=== PATIENT | male | born 1955 | race Caucasian/White ===

== ENCOUNTER 2024-04-11 16:40 | Emergency (ER) | payer MEDICARE ==
[~2024-04-11] VITALS: Ht 188 cm; Wt 100.2 kg
[2024-04-11 16:41] VITALS: TEMP 98.4; O2SAT 100
[2024-04-11] MEDS ORDERED: ATOR1TAB19 PO (16:53)
[2024-04-11] MEDS ORDERED: METO37.5 PO (16:53)
[2024-04-11] MEDS ORDERED: LOSA25TA13 PO (16:53)
[2024-04-11] MEDS ORDERED: BAYE325T12 PO (16:53)
[2024-04-11] MEDS ORDERED: FLOM0.4C39 PO (16:53)
[2024-04-11 17:30] LABS: BASO # 0.1 10^3/uL (0.0-0.2); BASO % 0.8 % (0.0-1.0); EOS # 0.2 10^3/uL (0.0-0.5); EOS % 2.5 % (0.0-3.0); HEMATOCRIT 40.8 % (42.0-52.0); HEMOGLOBIN 14.4 g/dl (13.5-17.5); LYMPH # 1.8 10^3/uL (1.5-5.0); LYMPH % 24.9 % (24.0-44.0); MEAN CORPUSCULAR HEMOGLOBIN 33.3 pg (27.0-33.0); MEAN CORPUSCULAR HGB CONC 35.3 g/dl (32.0-36.5); MEAN CORPUSCULAR VOLUME 94.4 fl (80.0-96.0); MONO # 0.8 10^3/uL (0.0-0.8); MONO % 10.4 % (2.0-8.0); NEUTROPHILS # 4.4 10^3/uL (1.5-8.5); NEUTROPHILS % 61.3 % (36.0-66.0); PLATELET COUNT, AUTOMATED 189 10^3/uL (150-450); RED BLOOD COUNT 4.32 10^6/uL (4.30-6.10); WHITE BLOOD COUNT 7.2 10^3/uL (4.0-10.0)
[2024-04-11 17:46] LABS: INR 1.02; PROTHROMBIN TIME 13.1 SECONDS (12.5-14.5)
[2024-04-11 17:59] LABS: BLOOD UREA NITROGEN 15 MG/DL (9-23); CALCIUM LEVEL 9.3 MG/DL (8.3-10.6); CARBON DIOXIDE LEVEL 27 MMOL/L (20-31); CHLORIDE LEVEL 107 MMOL/L (98-107); CK-MB VALUE MASS < 1.0 NG/ML (<3.6); CREATININE FOR GFR 1.04 MG/DL (0.70-1.30); GLOMERULAR FILTRATION RATE > 60.0 (>49); GLUCOSE, FASTING 97 MG/DL (74-106); POTASSIUM SERUM 4.2 MMOL/L (3.5-5.1); SODIUM LEVEL 141 MMOL/L (136-145)
[2024-04-11 18:04] LABS: CPK CREATINE PHOSPHOKINASE 85 U/L (46-171); MB/CK RELATIVE INDEX 1.17 (< OR =4)
[2024-04-11] MEDS ORDERED: ISOVUE-370 76% 100ML VIAL As Ordered ONE (18:25)
[2024-04-11 19:15] VITALS: BP 148/85
[2024-04-11] MEDS: PANTOPRAZOLE 40MG VIAL IV ONE (19:16)
[2024-04-11] MEDS: NS 500 ML IV ONE (19:16)
[2024-04-11] MEDS ORDERED: CARA1TAB6 PO (19:44)
[2024-04-11] MEDS ORDERED: PROT1TAB2 PO (19:44)
[2024-04-11] MEDS ORDERED: ONDA4TAB6 PO (19:52)
[2024-04-11 19:59] LABS: LIPASE 39 U/L (12-53)
[2024-04-11 20:02] LABS: ALBUMIN 3.8 G/DL (3.2-5.2); ALKALINE PHOSPHATASE 58 U/L (46-116); ALT/SGPT 20 U/L (7.0-40); AST/SGOT 15 U/L (<34); BILIRUBIN,DIRECT 0.2 MG/DL (<0.4); BILIRUBIN,TOTAL 0.7 MG/DL (0.3-1.2); TOTAL PROTEIN 6.4 G/DL (5.7-8.2)
== END 2024-04-11 19:56 | disposition home or self-care (01) ==
LOC: M ED 16:40
DX: K29.20 Alcoholic gastritis without bleeding (principal); I10 Essential (primary) hypertension; E78.5 Hyperlipidemia, unspecified; I48.91 Unspecified atrial fibrillation; K21.9 Gastro-esophageal reflux disease without esophagitis; F10.10 Alcohol abuse, uncomplicated; Z79.1 Long term (current) use of non-steroidal anti-inflammatories (NSAID); Z79.899 Other long term (current) drug therapy
CPT/HCPCS: 74177; 80048; 80076; 82550; 82553; 83690; 84484; 85025; 85610; 86850; 86900; 86901; 93005; 96361; 96374; 99284; C9113; Q9967

== ENCOUNTER 2024-08-21 13:32 | Inpatient (IN) | payer MEDICARE ==
[~2024-08-21] VITALS: Ht 185.4 cm; Wt 94.9 kg
[~2024-08-21 13:32] MED LIST: ATOR1TAB19 PO; BAYE325T12 PO; CARA1TAB6 PO; FLOM0.4C39 PO; LOSA25TA13 PO; METO37.5 PO; ONDA-282 PO; PROT1TAB2 PO
[2024-08-21] MEDS: LIDOCAINE 2% 5ML JELLY UROJET TOP ONE (14:20)
[2024-08-21 14:56] LABS: BASO % 0.2 % (0.0-1.0); EOS % 0.1 % (0.0-3.0); HEMATOCRIT 45.2 % (42.0-52.0); LYMPH # 0.9 10^3/uL (1.5-5.0); LYMPH % 4.8 % (24.0-44.0); MEAN CORPUSCULAR HEMOGLOBIN 32.8 pg (27.0-33.0); MEAN CORPUSCULAR HGB CONC 35.4 g/dl (32.0-36.5); MEAN CORPUSCULAR VOLUME 92.6 fl (80.0-96.0); MONO # 1.4 10^3/uL (0.0-0.8); MONO % 7.5 % (2.0-8.0); NEUTROPHILS # 16.2 10^3/uL (1.5-8.5); NEUTROPHILS % 86.9 % (36.0-66.0); PLATELET COUNT, AUTOMATED 172 10^3/uL (150-450); RED BLOOD COUNT 4.88 10^6/uL (4.30-6.10); WHITE BLOOD COUNT 18.6 10^3/uL (4.0-10.0)
[2024-08-21 15:23] LABS: ALBUMIN 3.7 G/DL (3.2-5.2); BILIRUBIN,DIRECT 0.5 MG/DL (<0.4); BILIRUBIN,TOTAL 1.6 MG/DL (0.3-1.2); CALCIUM LEVEL 8.9 MG/DL (8.3-10.6); CREATININE FOR GFR 4.4 MG/DL (0.70-1.30); GLOMERULAR FILTRATION RATE 14.3 (>49); POTASSIUM SERUM 3.7 MMOL/L (3.5-5.1); TOTAL PROTEIN 6.8 G/DL (5.7-8.2)
[2024-08-21] MEDS: NS 1,000 ML IV ONE (18:51)
[2024-08-21] MEDS: cefTRIAXone SOD 1 GM in D5W MINI-BAG PLUS 50 ML IV ONE (20:13)
[2024-08-21] MEDS ORDERED: LORazepam 2 MG TAB PO PRN (20:25)
[2024-08-21] MEDS ORDERED: ACETAMINOPHEN TAB 650MG DOSE (2X325MG) PO PRN (20:25)
[2024-08-21 21:49] VITALS: BP 153/84; TEMP 97.4; O2SAT 99
[2024-08-21] MEDS: KCL 20MEQ in NS 1000ML 1,000 ML IV SCH (21:58)
[2024-08-21] MEDS: THIAMINE 100 MG TAB PO SCH (21:58)
[2024-08-21] MEDS ORDERED: METO1TAB7 PO (22:33)
[2024-08-21] MEDS ORDERED: LOSA50TA28 PO (22:33)
[2024-08-21] MEDS ORDERED: ATOR1TAB21 PO (22:33)
[2024-08-21] MEDS ORDERED: HOME MED LIST COMPLETE! XX SCH (22:35)
[2024-08-22] VITALS (9 sets, daily range): BP systolic 119–142; BP diastolic 69–87; TEMP 97.5–99; O2SAT 96–99
[2024-08-22 00:50] LABS: CALCIUM LEVEL 8.3 MG/DL (8.3-10.6); CREATININE FOR GFR 1.46 MG/DL (0.70-1.30); GLOMERULAR FILTRATION RATE 51.1 (>49); MAGNESIUM LEVEL 1.9 MG/DL (1.8-2.4); POTASSIUM SERUM 3.8 MMOL/L (3.5-5.1)
[2024-08-22 01:13] LABS: BARBITURATES URINE NEGATIVE (NEGATIVE); BENZODIAZEPINES URINE NEGATIVE (NEGATIVE); COCAINE METABOLITE URINE NEGATIVE (NEGATIVE); METHADONE URINE NEGATIVE (NEGATIVE); OPIATES URINE NEGATIVE (NEGATIVE); PHENCYCLIDINE URINE NEGATIVE (NEGATIVE)
[2024-08-22 01:21] LABS: AMPHETAMINES LEVEL URINE POSITIVE (NEGATIVE); CANNABINOIDS URINE POSITIVE (NEGATIVE)
[2024-08-22] MEDS: HEPARIN SOD (PORCINE) 5000UNITS/ML 1ML VIAL/SYRINGE SC SCH (05:21)
[2024-08-22 05:36] LABS: HEMATOCRIT 38.9 % (42.0-52.0); MEAN CORPUSCULAR HEMOGLOBIN 32.7 pg (27.0-33.0); MEAN CORPUSCULAR HGB CONC 34.7 g/dl (32.0-36.5); MEAN CORPUSCULAR VOLUME 94.2 fl (80.0-96.0); PLATELET COUNT, AUTOMATED 150 10^3/uL (150-450); RED BLOOD COUNT 4.13 10^6/uL (4.30-6.10); WHITE BLOOD COUNT 10.7 10^3/uL (4.0-10.0)
[2024-08-22 05:37] LABS: HEMOGLOBIN 13.5 g/dl (13.5-17.5)
[2024-08-22 06:06] LABS: ALBUMIN 2.8 G/DL (3.2-5.2); ALKALINE PHOSPHATASE 47 U/L (46-116); ALT/SGPT 13 U/L (7.0-40); AST/SGOT < 8 U/L (<34); BILIRUBIN,TOTAL 1.1 MG/DL (0.3-1.2); BLOOD UREA NITROGEN 18 MG/DL (9-23); CALCIUM LEVEL 8.2 MG/DL (8.3-10.6); CARBON DIOXIDE LEVEL 25 MMOL/L (20-31); CHLORIDE LEVEL 111 MMOL/L (98-107); CREATININE FOR GFR 1.17 MG/DL (0.70-1.30); GLOMERULAR FILTRATION RATE > 60.0 (>49); GLUCOSE, FASTING 125 MG/DL (74-106); MAGNESIUM LEVEL 1.9 MG/DL (1.8-2.4); SODIUM LEVEL 140 MMOL/L (136-145); TOTAL PROTEIN 5.6 G/DL (5.7-8.2)
[2024-08-22] MEDS: MULTIVITAMINS/MINERALS THERAP 1 TAB PO SCH (08:21)
[2024-08-22] MEDS: FOLIC ACID 1MG TAB PO SCH (08:21)
[2024-08-22] MEDS: ATORVASTATIN 20 MG TAB PO SCH (08:21)
[2024-08-22] MEDS: PANTOPRAZOLE 40MG TAB (PROTONIX) PO SCH (08:21)
[2024-08-22] MEDS: TAMSULOSIN 0.4 MG CAP PO SCH (08:23)
[2024-08-22] MEDS: METOPROLOL SUCC (TopROL XL) 50MG **XL** TAB PO SCH (08:23)
[2024-08-22] MEDS: NS 1,000 ML IV SCH (08:27)
[2024-08-22] MEDS: cefTRIAXone SOD 1 GM in D5W MINI-BAG PLUS 50 ML IV SCH (20:00)
[2024-08-23] VITALS: BP 125/69
[2024-08-23 03:58] VITALS: BP 144/88; TEMP 97.9; O2SAT 98
[2024-08-23 04:00] VITALS: BP 148/88
[2024-08-23 06:16] LABS: HEMATOCRIT 37.6 % (42.0-52.0); HEMOGLOBIN 12.8 g/dl (13.5-17.5); MEAN CORPUSCULAR HEMOGLOBIN 32.5 pg (27.0-33.0); MEAN CORPUSCULAR VOLUME 95.4 fl (80.0-96.0); PLATELET COUNT, AUTOMATED 146 10^3/uL (150-450); RED BLOOD COUNT 3.94 10^6/uL (4.30-6.10); WHITE BLOOD COUNT 6.6 10^3/uL (4.0-10.0)
[2024-08-23 06:20] LABS: ALBUMIN 2.8 G/DL (3.2-5.2); ALKALINE PHOSPHATASE 44 U/L (46-116); ALT/SGPT < 9 U/L (7.0-40); AST/SGOT < 8 U/L (<34); BILIRUBIN,TOTAL 0.9 MG/DL (0.3-1.2); BLOOD UREA NITROGEN 15 MG/DL (9-23); CALCIUM LEVEL 8.6 MG/DL (8.3-10.6); CARBON DIOXIDE LEVEL 26 MMOL/L (20-31); CHLORIDE LEVEL 109 MMOL/L (98-107); GLOMERULAR FILTRATION RATE > 60.0 (>49); GLUCOSE, FASTING 100 MG/DL (74-106); POTASSIUM SERUM 3.9 MMOL/L (3.5-5.1); SODIUM LEVEL 139 MMOL/L (136-145); TOTAL PROTEIN 5.5 G/DL (5.7-8.2)
[2024-08-23 08:52] VITALS: BP 139/90; TEMP 97.5; O2SAT 97
[2024-08-23 08:53] VITALS: BP 139/90
[2024-08-23] MEDS ORDERED: THIA100TA PO (12:02)
[2024-08-23] MEDS ORDERED: NORV5TAB PO (12:02)
[2024-08-23] MEDS ORDERED: PANT40TA29 PO (12:02)
[2024-08-23] MEDS ORDERED: FOLI1TAB11 PO (12:02)
[2024-08-23 12:30] VITALS: BP 137/82; TEMP 98.1; O2SAT 97
[2024-08-23] MEDS ORDERED: ATOR1TAB21 PO (13:25)
== END 2024-08-23 13:00 | disposition home or self-care (01) | DRG 726 ==
LOC: M ED 13:32 → M ED INP 20:22 → M ICU 21:47
PROVIDERS: ADMIT Preventive Medicine Undersea and Hyperbaric Medicine; ATTEND Internal Medicine Nephrology
DX: N40.1 Benign prostatic hyperplasia with lower urinary tract symptoms (principal); I48.20 Chronic atrial fibrillation, unspecified; N17.9 Acute kidney failure, unspecified; N13.8 Other obstructive and reflux uropathy; R33.9 Retention of urine, unspecified; F10.10 Alcohol abuse, uncomplicated; I10 Essential (primary) hypertension; E78.5 Hyperlipidemia, unspecified; Z79.899 Other long term (current) drug therapy

== ENCOUNTER 2024-09-18 09:35 | Emergency (ER) | payer MEDICARE ==
[~2024-09-18] VITALS: Ht 188 cm; Wt 98.1 kg
[~2024-09-18 09:35] MED LIST changes: +ATOR1TAB21 PO; +FOLI1TAB11 PO; +LOSA50TA28 PO; +METO1TAB7 PO; +NORV5TAB PO; +PANT40TA29 PO; +THIA100TA PO
[2024-09-18 11:38] LABS: HEMATOCRIT 42.1 % (42.0-52.0); HEMOGLOBIN 14.7 g/dl (13.5-17.5); MEAN CORPUSCULAR HEMOGLOBIN 32.7 pg (27.0-33.0); MEAN CORPUSCULAR HGB CONC 34.9 g/dl (32.0-36.5); MEAN CORPUSCULAR VOLUME 93.8 fl (80.0-96.0); PLATELET COUNT, AUTOMATED 127 10^3/uL (150-450); RED BLOOD COUNT 4.49 10^6/uL (4.30-6.10); WHITE BLOOD COUNT 13.5 10^3/uL (4.0-10.0)
[2024-09-18 11:53] LABS: INR 1.21; PARTIAL THROMBOPLASTIN TIME 29.1 SECONDS (24.8-34.2); PROTHROMBIN TIME 14.9 SECONDS (12.5-14.5)
[2024-09-18 11:58] LABS: BLOOD UREA NITROGEN 16 MG/DL (9-23); CALCIUM LEVEL 9.1 MG/DL (8.3-10.6); CARBON DIOXIDE LEVEL 22 MMOL/L (20-31); CHLORIDE LEVEL 104 MMOL/L (98-107); CREATININE FOR GFR 0.95 MG/DL (0.70-1.30); GLOMERULAR FILTRATION RATE > 60.0 (>49); GLUCOSE, FASTING 127 MG/DL (74-106); POTASSIUM SERUM 4.1 MMOL/L (3.5-5.1); SODIUM LEVEL 133 MMOL/L (136-145)
[2024-09-18 12:05] LABS: PROCALCITONIN 0.45 ng/ml
[2024-09-18] MEDS: ACETAMINOPHEN 325 MG TAB PO ONE (12:24)
[2024-09-18] MEDS: CIPROFLOXACIN 400 MG in IV 1 EA IV ONE (12:47)
[2024-09-18] MEDS: LIDOCAINE 2% 5ML JELLY UROJET TOP ONE (14:45)
[2024-09-18] MEDS ORDERED: CIPR500T39 PO (15:49)
[2024-09-18 16:02] VITALS: BP 119/83; TEMP 99.8; O2SAT 73
== END 2024-09-18 16:04 | disposition home or self-care (01) ==
LOC: M ED 09:35
DX: N39.0 Urinary tract infection, site not specified (principal); I10 Essential (primary) hypertension; N40.0 Benign prostatic hyperplasia without lower urinary tract symptoms; E78.5 Hyperlipidemia, unspecified; F17.210 Nicotine dependence, cigarettes, uncomplicated; F10.10 Alcohol abuse, uncomplicated; Z79.2 Long term (current) use of antibiotics; Z79.899 Other long term (current) drug therapy
CPT/HCPCS: 51703; 80048; 81001; 83605; 84145; 85027; 85610; 85730; 87040; 87088; 87186; 87486; 87581; 87633; 87798; 93041; 96365; 99285; J0744

== ENCOUNTER → 2024-11-11 | Outpatient (CLI) | payer MEDICARE ==
[~2024-11-11] MED LIST changes: +CIPR500T39 PO
== END ==
LOC: M SMT PRO 12:16
PROVIDERS: ATTEND Urology
DX: D29.1 Benign neoplasm of prostate (principal); R97.20 Elevated prostate specific antigen [PSA]

== ENCOUNTER → 2024-12-21 | Outpatient (CLI) | payer MEDICARE ==
[~2024-12-21] MED LIST changes: -BAYE325T12 PO; +BAYE325T2 PO; +FINA5TAB2 PO
[2024-12-21 14:14] LABS: AMORPHOUS SEDIMENT SMALL (NEGATIVE); APPEARANCE, URINE CLOUDY (CLEAR); BACTERIA, URINE AUTO 1+ (NEGATIVE); BILIRUBIN, URINE AUTO NEGATIVE (NEGATIVE); BLOOD, URINE BLOOD 2+ (NEGATIVE); COLOR, URINE AMBER (YELLOW); GLUCOSE, URINE (UA) AUTO NEGATIVE (NEGATIVE); KETONE, URINE AUTO TRACE mg/dL (NEGATIVE); LEUKOCYTE ESTERASE, URINE AUTO 3+ (NEGATIVE); MUCUS, URINE MODERATE (NEGATIVE); NITRITE, URINE AUTO POSITIVE (NEGATIVE); PROTEIN, URINE AUTO 2+ mg/dL (NEGATIVE); RBC, URINE AUTO 38 /HPF (0-3); SPECIFIC GRAVITY URINE AUTO 1.023 (1.002-1.035); SQUAMOUS EPITHELIAL CELL UR AU 0 /HPF (0-6); UROBILINOGEN, URINE AUTO 0.2 mg/dL (0.0-2.0); WBC, URINE AUTO TNTC /HPF (0-3)
[2024-12-21 14:20] LABS: HEMATOCRIT 47.3 % (42.0-52.0); HEMOGLOBIN 16.4 g/dl (13.5-17.5); MEAN CORPUSCULAR HEMOGLOBIN 31.8 pg (27.0-33.0); MEAN CORPUSCULAR HGB CONC 34.7 g/dl (32.0-36.5); MEAN CORPUSCULAR VOLUME 91.8 fl (80.0-96.0); PLATELET COUNT, AUTOMATED 182 10^3/uL (150-450); RED BLOOD COUNT 5.15 10^6/uL (4.30-6.10); WHITE BLOOD COUNT 6.3 10^3/uL (4.0-10.0)
[2024-12-21 16:20] LABS: BLOOD UREA NITROGEN 20 MG/DL (9-23); CALCIUM LEVEL 9.2 MG/DL (8.3-10.6); CARBON DIOXIDE LEVEL 30 MMOL/L (20-31); CHLORIDE LEVEL 106 MMOL/L (98-107); CREATININE FOR GFR 0.89 MG/DL (0.70-1.30); GLOMERULAR FILTRATION RATE > 60.0 (>49); GLUCOSE, FASTING 96 MG/DL (74-106); POTASSIUM SERUM 4.5 MMOL/L (3.5-5.1); SODIUM LEVEL 142 MMOL/L (136-145)
== END ==
LOC: M RAD 11:54
PROVIDERS: ATTEND Physician Assistant
DX: Z01.818 Encounter for other preprocedural examination (principal); I48.91 Unspecified atrial fibrillation; I44.4 Left anterior fascicular block

== ENCOUNTER → 2024-12-22 | Outpatient (REF) | payer MEDICARE ==
[2024-12-22 13:47] LABS: APPEARANCE, URINE HAZY (CLEAR); BACTERIA, URINE AUTO 1+ (NEGATIVE); BILIRUBIN, URINE AUTO NEGATIVE (NEGATIVE); BLOOD, URINE BLOOD NEGATIVE (NEGATIVE); COLOR, URINE YELLOW (YELLOW); GLUCOSE, URINE (UA) AUTO NEGATIVE (NEGATIVE); KETONE, URINE AUTO NEGATIVE (NEGATIVE); LEUKOCYTE ESTERASE, URINE AUTO 3+ (NEGATIVE); MUCUS, URINE SMALL (NEGATIVE); NITRITE, URINE AUTO NEGATIVE (NEGATIVE); PROTEIN, URINE AUTO 1+ mg/dL (NEGATIVE); RBC, URINE AUTO 23 /HPF (0-3); SPECIFIC GRAVITY URINE AUTO 1.023 (1.002-1.035); SQUAMOUS EPITHELIAL CELL UR AU 0 /HPF (0-6); UROBILINOGEN, URINE AUTO 0.2 mg/dL (0.0-2.0); WBC, URINE AUTO 166 /HPF (0-3)
== END ==
LOC: M SMT 12:50
PROVIDERS: ATTEND Physician Assistant
DX: N13.30 Unspecified hydronephrosis (principal); Z79.899 Other long term (current) drug therapy

== ENCOUNTER 2024-12-29 08:36 | Day surgery (SDC) | payer MEDICARE ==
[~2024-12-29] VITALS: Ht 185.4 cm; Wt 98.4 kg
[2024-12-29] MEDS ORDERED: LR 1,000 ML IV SCH (09:15)
[2024-12-29] MEDS ORDERED: propofoL 200 MG/20 ML VIAL As Ordered ONE (11:04)
[2024-12-29] MEDS ORDERED: fentaNYL 100 MCG/2 ML INJECTION As Ordered ONE (11:04)
[2024-12-29] MEDS ORDERED: MIDAZOLAM INJ 2MG/2ML VIAL As Ordered ONE (11:04)
[2024-12-29] MEDS ORDERED: ONDANSETRON 4MG 2ML VIAL As Ordered ONE (11:04)
[2024-12-29] MEDS ORDERED: LIDOCAINE 2% 100MG/5ML SDV (FOR ANES.) As Ordered ONE (11:04)
[2024-12-29] MEDS ORDERED: KETOROLAC 60MG 2ML VIAL As Ordered ONE (11:26)
[2024-12-29] MEDS ORDERED: ACETAMINOPHEN 1000MG/100ML IV BAG As Ordered ONE (11:26)
[2024-12-29] MEDS: LevoFLOXacin IV 500 MG in IV 1 EA IV ONE (11:37)
[2024-12-29] MEDS ORDERED: ONDANSETRON 4MG 2ML VIAL IV PRN (12:40)
[2024-12-29] MEDS ORDERED: fentaNYL 100 MCG/2 ML INJECTION IV PRN (12:40)
[2024-12-29] MEDS ORDERED: MORPHINE 2 MG/ML 1ML VIAL IV PRN (12:40)
[2024-12-29] MEDS ORDERED: oxyCODONE 5MG TAB PO PRN (12:40)
[2024-12-29] MEDS ORDERED: LEVO1TAB39 PO (12:44)
[2024-12-29] MEDS ORDERED: PYRI1TAB5 PO (12:44)
[2024-12-29] MEDS ORDERED: OXYB5TAB14 PO (12:44)
[2024-12-29 13:49] VITALS: BP 121/62; TEMP 97.8; O2SAT 97
== END 2024-12-29 14:03 | disposition home or self-care (01) ==
LOC: M SDC 08:36
PROVIDERS: ATTEND Urology
DX: N40.2 Nodular prostate without lower urinary tract symptoms (principal); N40.1 Benign prostatic hyperplasia with lower urinary tract symptoms; R33.9 Retention of urine, unspecified; Z79.899 Other long term (current) drug therapy
CPT/HCPCS: 52601; 88305; J0131; J1100; J1885; J1956; J2250; J2405; J3010